=== PATIENT | female | born 1980 | race Caucasian/White ===

== ENCOUNTER 2018-07-23 07:30 | Inpatient (IN) | payer OTHER ==
[2018-07-23] VITALS (47 sets, daily range): BP systolic 105–144; BP diastolic 56–82
[~2018-07-23] VITALS: Ht 172.7 cm; Wt 108.0 kg
--- NOTE | 2018-07-23 07:30 | NUR ---
SEJAL SOMERS presented to unit via ambulation, accompanied by , for scheduled IOL. Pt. weighed, gowned, voided, and to bed.
--- NOTE | 2018-07-23 07:40 | NUR ---
EFHM and TOCO applied, VS taken. Pt. oriented to bed controls, call light, TV, heat, and A/C controls. admission paperwork completed.
--- NOTE | 2018-07-23 07:56 | NUR ---
called to check on pt status. update given. POC reviewed.
[2018-07-23] MEDS ORDERED: AMPICILLIN FOR IV USE 2,000 MG in NS (IVPB) 50 ML IV SCH (08:10)
[2018-07-23] MEDS ORDERED: OXYTOCIN/NORMAL SALINE 500 ML IV SCH ×2 (08:10→15:41)
[2018-07-23] MEDS ORDERED: LACTATED RINGERS 1,000 ML IV SCH ×2 (08:15→14:54)
[2018-07-23] MEDS ORDERED: NS (IVPB) 50 ML ONE (08:25)
[2018-07-23] MEDS ORDERED: AMPICILLIN 2,000 MG/20 ML (IV USE) ONE (08:25)
--- NOTE | 2018-07-23 08:40 | NUR ---
#20g IV to Lt.hand x1 attempt by this RN. site patent, secured with opsite. admission labs collected from site prior to LR infusing. pt tolerated well.
[2018-07-23 09:03] LABS: BASOPHILS % (AUTO) 0 % (0-10); EOSINOPHILS % (AUTO) 0 % (0-10); HEMATOCRIT 38 % (35-52); HEMOGLOBIN 12.6 G/DL (11.5-16.0); LYMPHOCYTES % (AUTO) 13 % (12-44); MEAN CORPUSCULAR HEMOGLOBIN 31 PG (25-34); MEAN CORPUSCULAR HGB CONC 33 G/DL (32-36); MEAN CORPUSCULAR VOLUME 94 FL (80-99); MONOCYTES # (AUTO) 0.6 X 10^3 (0.0-1.0); MONOCYTES % (AUTO) 8 % (0-12); NEUTROPHILS % (AUTO) 78 % (42-75); PLATELET COUNT 287 10^3/uL (130-400); RED BLOOD COUNT 4.04 10^6/uL (4.35-5.85); RED CELL DISTRIBUTION WIDTH 13.8 % (10.0-14.5); WHITE BLOOD COUNT 7.7 10^3/uL (4.3-11.0)
[2018-07-23] MEDS ORDERED: METF-399 PO (09:05)
[2018-07-23] MEDS ORDERED: DOCU-143 PO (09:07)
[2018-07-23] MEDS ORDERED: PREN-142 PO (09:07)
[2018-07-23] MEDS ORDERED: CYCL10TA9 PO (09:07)
--- NOTE | 2018-07-23 09:49 | NUR ---
called. will do SVE and will give update
[2018-07-23] MEDS ORDERED: FLU QUADRIvalent (5+ YOA) 2018-2019 (AFLURIA) 0.5 ML IM ONE (10:00)
[2018-07-23] MEDS ORDERED: AMPICILLIN FOR IV USE 1,000 MG in NS (IVPB) 50 ML IV SCH (12:15)
--- NOTE | 2018-07-23 13:23 | Labor Progress Note ---
Labor Progress Note Labor Progress Note Date Seen by Provider: Jul 23, 2018 Time Seen by Provider: 13:05 Subjective: Pt denies complaints. Objective: Cervical exam: 4.5/50/-2 Consistency: soft Position: mid Presentation: vertex heart tones: 140 beats per minute, moderate variability, no decels, difficult to trace Tocometer: 3 ctx/10 minutes Assessment/Plan: Pema Peck is a 37 /Para 3/2, Gestational Age (wks)39 here for IOL. AROM at this time with clear fluid and FSE placed for closer monitoring TOCO Continue pitocin Anticipate vaginal delivery. Dr. Zurita updated Vitals - Labs Vital Signs - I&O Vital Signs 07/23/18 07/23/18 11:30 12:30 Temp 97.4 Pulse 80 Resp 18 B/P (MAP) 120/66 (84) O2 Delivery Room Air Labs Laboratory Tests 07/23/18 08:40: White Blood Count 7.7, Red Blood Count 4.04L, Hemoglobin 12.6, Hematocrit 38, Mean Corpuscular Volume 94, Mean Corpuscular Hemoglobin 31, Mean Corpuscular Hemoglobin Concent 33, Red Cell Distribution Width 13.8, Platelet Count 287, Mean Platelet Volume 10.0, Neutrophils (%) (Auto) 78H, Lymphocytes (%) (Auto) 13 , Monocytes (%) (Auto) 8, Eosinophils (%) (Auto) 0, Basophils (%) (Auto) 0, Neutrophils # (Auto) 6.0, Lymphocytes # (Auto) 1.0, Monocytes # (Auto) 0.6, Eosinophils # (Auto) 0.0, Basophils # (Auto) 0.0 JAYNE JONES MD Jul 23, 2018 13:23
[2018-07-23] MEDS ORDERED: SUFENTA 0.6MCG/ML BUPIVA 0.125 100 ML ONE (13:36)
--- NOTE | 2018-07-23 13:48 | NUR ---
anesthesia notified of pt's request for epidural placement.
[2018-07-23] MEDS ORDERED: CATHETER FLUSH 10 ML SYR IV SCH ×2 (14:00→22:00)
[2018-07-23] MEDS ORDERED: BUPIVACAINE 0.25% 30 ML (SENSORCAINE) VIAL ONE (14:02)
[2018-07-23] MEDS ORDERED: fentaNYL INJECTION 100 MCG/2 ML AMP ONE (14:02)
--- NOTE | 2018-07-23 14:12 | NUR ---
CATY Shaw and MATTIE SRNA here for epidural placement. Procedure explained, consent reviewed and signed by anesthesia. Questions answered to patient's satisfaction. Time out taken to verify correct patient/procedure. Patient up to side of bed, assisted into sitting position. Betadine prep done x3 and sterile drape applied. 1415: Local done, see anesthesia record. 1421:Tests dose given, see anesthesia record for drug and dosage. Epidural catheter secured in place. Epidural placement complete. Assisted back into bed, monitors adjusted. Epidural dosed, see anesthesia record. 1430: Epidural of Sufenta/Bupvicaine @12cc/hr stated per pump. Patient tolerated procedure well.
[2018-07-23] MEDS ORDERED: EPIDURAL (SUFENTA 0.6MCG/ML BUPIVA 0.125%) 100 ML BAG EPI PRN (15:00)
[2018-07-23] MEDS ORDERED: METOCLOPRAMIDE INJ 10 MG/2 ML (REGLAN) IV PRN (15:00)
[2018-07-23] MEDS ORDERED: ONDANSETRON 4 MG/2 ML (SDV) Z0FRAN IV PRN (15:00)
[2018-07-23] MEDS ORDERED: NALOXONE 0.4 MG/ML 1 ML (NARCAN) VIAL IV PRN ×2 (15:00)
[2018-07-23] MEDS ORDERED: diphenhydrAMINE 50 MG/ML INJ (BENADRYL) IV PRN (15:00)
--- NOTE | 2018-07-23 15:36 | History & Physical-OB ---
OB - Chief Complaint & HPI Date/Time Date of Admission: Date of Admission: Jul 23, 2018 at 07:30 Time Seen by a Provider: 13:00 Chief Complaint/History OB-Reason for Admission/Chief: Induction of Labor Hx : 3 Hx Para: 2 Expected Date of Delivery: Jul 24, 2018 Gestational Age in Weeks: 39 Gestational Age in Days: 6 Indication for induction: other Admission Nurse Assessment Rev: Yes Allergies and Home Medications Allergies Coded Allergies: No Known Drug Allergies (Unverified , 07/23/18) Home Medications Cyclobenzaprine HCl 10 Mg Tablet, 10 MG PO HS, (Reported) Docusate Sodium 100 Mg Capsule, 100 MG PO DAILY, (Reported) Metformin HCl 1,000 Mg Tablet, 1,000 MG PO BID, (Reported) Vit No.124/Iron/FA 1 Each Tablet, 1 EACH PO DAILY, (Reported) Patient Home Medication List Home Medication List Reviewed: Yes OB - History Hx of Present Care: Yes Ultrasounds: Normal mid trimester US Obstetrical Complications: Gestational Diabetes Medical Complications: None Information Maternal Gestational Diabetes: Yes (controlled on metformin) Patient Past Medical History Healthy Social History/Family History Recent Infectious Disease Expo: No Alcohol Use: Denies Use Recreational Drug Use: No OB - Admission Exam Physical Exam Vitals: Vital Signs 07/23/18 07/23/18 11:30 13:30 Temp 97.4 Pulse 88 Resp 18 B/P (MAP) 130/79 (96) O2 Delivery Room Air HEENT: PERRLA Heart: Rhythm Normal Lungs: Clear Abdomen: Gravid Extremities: Normal Reflexes: Normal Cervical Dilatation: 10cm Effacement: 100% Station: +2 Membranes: Ruptured Amniotic Fluid: Clear Heart Rate: 130's Accelerations: Accelerations Present Decelerations: Variable Decelerations Short Term Variability: Present Fci Variability: Average (6-25) Contractions on Admission: < 5 Minutes Apart Intensity: Firm Labs Laboratory Tests Test 07/23/18 08:40 Range/Units White Blood Count 7.7 4.3-11.0 10^3/uL Red Blood Count 4.04 L 4.35-5.85 10^6/uL Hemoglobin 12.6 11.5-16.0 G/DL Hematocrit 38 35-52 % Mean Corpuscular Volume 94 80-99 FL Mean Corpuscular Hemoglobin 31 25-34 PG Mean Corpuscular Hemoglobin Concent 33 32-36 G/DL Red Cell Distribution Width 13.8 10.0-14.5 % Platelet Count 287 130-400 10^3/uL Mean Platelet Volume 10.0 7.4-10.4 FL Neutrophils (%) (Auto) 78 H 42-75 % Lymphocytes (%) (Auto) 13 12-44 % Monocytes (%) (Auto) 8 0-12 % Eosinophils (%) (Auto) 0 0-10 % Basophils (%) (Auto) 0 0-10 % Neutrophils # (Auto) 6.0 1.8-7.8 X 10^3 Lymphocytes # (Auto) 1.0 1.0-4.0 X 10^3 Monocytes # (Auto) 0.6 0.0-1.0 X 10^3 Eosinophils # (Auto) 0.0 0.0-0.3 10^3/uL Basophils # (Auto) 0.0 0.0-0.1 10^3/uL OB - Assessment/Plan/Diagnosis Assessment Assessment: active labor, induction of labor Admission Dx 39 6/7 wga with gestational diabetes Admission Status: Inpatient Order (span 2 midnights) Reason for Inpatient Admission: Vaginal delivery Plan Plan: Induction Induction Method: per Pitocin Protocol MARY PIERCE MD Jul 23, 2018 15:36
--- NOTE | 2018-07-23 15:41 | OB Labor & Delivery Record ---
Vag Delivery Note Vag Delivery Note Date of Delivery: 07/23/18 Preoperative Diagnosis: Pema Peck is a (37 /Para 3 / 2, Gestational Age (wks)39with [6 days] Postoperative Diagnosis: Same Surgeon: MARY PIERCE Inpatient Services Rn: [] Anesthesia: [epidural] Delivery Type: [] Findings: [] Viable [female] infant, apgars [8/9], weight [6 pounds 2 ounces] Lacerations: 2nd degree perineal Intact placenta with 3 vessel cord. Loose nuchal cord Estimated Blood Loss: [200] ml Complications: None Condition: Stable Description of Procedure: The patient is a []who presented [for induction of labor]. She was admitted and informed consent was obtained. Her labor course was remarkable for [ variable decelerations] She progressed to complete dilatation and began to push. She was then set up for delivery. The infant's head was delivered atraumatically in the [OP] position. The shoulders and remainder of the ' s body were then delivered without difficulty. Upon delivery, the head was held below the level of the perineum and the mouth and nares were bulb suctioned. The cord was doubly clamped and cut and the infant was placed on maternal abdomen. An intact placenta with 3-vessel cord was manually extracted and there was found to be minimal bleeding.~ Vigorous fundal massage was performed and the fundus was found to be firm. IV oxytocin was given. Examination of the vagina and perineum revealed a [2nd degree perineal] laceration repaired in the usual fashion with 3-0 vicryl suture. Following the repair, sponge, instrument and needle counts were correct. Mom and baby were both in stable condition in the labor suite. Vitals - Labs Vital Signs - I&O Vital Signs Date Time Temp Pulse Resp B/P (MAP) Pulse Ox O2 Delivery O2 Flow Rate FiO2 07/23/18 13:30 88 18 130/79 (96) Room Air 07/23/18 13:15 90 18 129/72 (91) Room Air 07/23/18 13:00 88 18 128/71 (90) Room Air 07/23/18 12:45 89 18 125/80 (95) Room Air 07/23/18 12:30 80 18 120/66 (84) Room Air 07/23/18 12:15 82 18 115/62 (79) Room Air 07/23/18 12:00 85 18 115/67 (83) Room Air 07/23/18 11:45 81 18 114/66 (82) Room Air 07/23/18 11:30 97.4 84 18 117/66 (83) Room Air 07/23/18 11:15 90 18 125/74 (91) Room Air 07/23/18 11:00 87 18 126/72 (90) Room Air 07/23/18 10:45 83 18 122/73 (89) Room Air 07/23/18 10:30 88 18 122/76 (91) Room Air 07/23/18 10:15 95 18 144/72 (96) Room Air 07/23/18 10:00 81 18 110/76 (87) Room Air 07/23/18 09:45 96 18 119/65 (83) Room Air 07/23/18 09:30 88 18 126/69 (88) Room Air 07/23/18 09:15 84 18 122/65 (84) Room Air 07/23/18 09:00 96.6 96 18 118/59 (78) Room Air 07/23/18 08:45 91 18 120/63 (82) Room Air 07/23/18 07:40 109 18 129/81 (97) Room Air Labs Laboratory Tests 07/23/18 08:40: White Blood Count 7.7, Red Blood Count 4.04L, Hemoglobin 12.6, Hematocrit 38, Mean Corpuscular Volume 94, Mean Corpuscular Hemoglobin 31, Mean Corpuscular Hemoglobin Concent 33, Red Cell Distribution Width 13.8, Platelet Count 287, Mean Platelet Volume 10.0, Neutrophils (%) (Auto) 78H, Lymphocytes (%) (Auto) 13 , Monocytes (%) (Auto) 8, Eosinophils (%) (Auto) 0, Basophils (%) (Auto) 0, Neutrophils # (Auto) 6.0, Lymphocytes # (Auto) 1.0, Monocytes # (Auto) 0.6, Eosinophils # (Auto) 0.0, Basophils # (Auto) 0.0 MARY PIERCE MD Jul 23, 2018 15:41
[2018-07-23] MEDS ORDERED: TETANUS,DIPTH,PERTUSS P/F (BOOSTRIX) 0.5 ML VIAL IM ONE (15:45)
[2018-07-23] MEDS ORDERED: BENZOCAINE/MENTHOL (DERMOPLAST) 56 ML CAN TP PRN (15:45)
[2018-07-23] MEDS ORDERED: MEASLES,MUMPS,RUBELLA 1 EA INJ SQ ONE (15:45)
[2018-07-23] MEDS ORDERED: WITCH HAZEL(TUCKS) 40 EA JAR TOP PRN (15:45)
[2018-07-23] MEDS: IBUPROFEN 600 MG (MOTRIN) TAB PO SCH ×2 (18:00→23:57)
--- NOTE | 2018-07-23 18:00 | NUR ---
FFu/1. lt rubra noted, no clots expressed. gamaliel-care offered. Dermaplast applied to site. v-pad and panties in place. pt transferred to room 312 via w/c with family @ side. pt reports no c/o's @ time. scheduled Motrin given. see eMar for further.
--- NOTE | 2018-07-23 19:06 | NUR ---
report given to next shift.
--- NOTE | 2018-07-23 21:00 | NUR ---
PT standby assist to bathroom, first void since delivery, no distress noted, jerman urine noted in toilet mixed with blood, pericare independently, ambulated independently to bed, vss, see int. Denies needs, will cont to monitor.
[2018-07-23] MEDS: DOCUSATE SODIUM 100 MG (COLACE) CAP PO SCH (23:57)
[2018-07-24 05:41] LABS: BASOPHILS % (AUTO) 0 % (0-10); EOSINOPHILS # (AUTO) 0.1 10^3/uL (0.0-0.3); EOSINOPHILS % (AUTO) 1 % (0-10); HEMATOCRIT 34 % (35-52); HEMOGLOBIN 11.3 G/DL (11.5-16.0); LYMPHOCYTES # (AUTO) 1.6 X 10^3 (1.0-4.0); LYMPHOCYTES % (AUTO) 21 % (12-44); MEAN CORPUSCULAR HEMOGLOBIN 32 PG (25-34); MEAN CORPUSCULAR HGB CONC 34 G/DL (32-36); MEAN CORPUSCULAR VOLUME 95 FL (80-99); MEAN PLATELET VOLUME 9.5 FL (7.4-10.4); MONOCYTES # (AUTO) 0.8 X 10^3 (0.0-1.0); MONOCYTES % (AUTO) 10 % (0-12); NEUTROPHILS # (AUTO) 5.2 X 10^3 (1.8-7.8); NEUTROPHILS % (AUTO) 68 % (42-75); PLATELET COUNT 282 10^3/uL (130-400); RED BLOOD COUNT 3.56 10^6/uL (4.35-5.85); RED CELL DISTRIBUTION WIDTH 13.9 % (10.0-14.5); WHITE BLOOD COUNT 7.6 10^3/uL (4.3-11.0)
[2018-07-24] MEDS ORDERED: PRENATAL VITAMIN 1 EA TAB PO SCH (07:00)
[2018-07-24] MEDS: DOCUSATE SODIUM 100 MG (COLACE) CAP PO SCH (08:51)
[2018-07-24] MEDS: IBUPROFEN 600 MG (MOTRIN) TAB PO SCH ×2 (08:52→14:10)
--- NOTE | 2018-07-24 09:55 | Anesthesia-Regional Post-Op ---
Regional Patient Condition Mental Status: Alert, Oriented x3 Circulation: Same as Pre-Op Headache: Absent Sensation: Full Recovery Motor Block: Absent Post Op Complications Complications None Follow Up Care/Instructions Patient Instructions None needed. Anesthesia/Patient Condition Patient is doing well, no complaints, stable vital signs, no apparent adverse anesthesia problems. No complications reported per nursing. [place] [facility] [place] MARIO TRAN CRNA Jul 24, 2018 09:55
--- NOTE | 2018-07-24 11:27 | Progress Note (SOAP) ---
Subjective Subjective/Events-last exam PPD#1 Afebrile, no acute events. Bleeding decreasing. Denies dizziness, shortness of breath, leg pain. Review of Systems Date Seen by Provider: Jul 24, 2018 Time Seen by Provider: 09:03 Objective Exam Last Set of Vital Signs Vital Signs Date Time Temp Pulse Resp B/P (MAP) Pulse Ox O2 Delivery O2 Flow Rate FiO2 07/23/18 23:57 97.9 74 18 105/61 (76) 95 Room Air Capillary Refill : I&O Intake and Output 07/24/18 00:00 Intake Total 600 ml Balance 600 ml Intake IV Total 600 ml Daily Weight Change No General: Alert, No Acute Distress Lungs: Clear to Auscultation, Normal Air Movement Heart: Regular Rate, No Murmurs Neuro: Normal Speech Psych/Mental Status: Mental Status NL Results/Procedures Lab Laboratory Tests 07/24/18 05:30: White Blood Count 7.6, Red Blood Count 3.56L, Hemoglobin 11.3L, Hematocrit 34L, Mean Corpuscular Volume 95, Mean Corpuscular Hemoglobin 32, Mean Corpuscular Hemoglobin Concent 34, Red Cell Distribution Width 13.9, Platelet Count 282, Mean Platelet Volume 9.5, Neutrophils (%) (Auto) 68, Lymphocytes (%) (Auto) 21, Monocytes (%) (Auto) 10, Eosinophils (%) (Auto) 1, Basophils (%) (Auto) 0, Neutrophils # (Auto) 5.2, Lymphocytes # (Auto) 1.6, Monocytes # (Auto) 0.8, Eosinophils # (Auto) 0.1, Basophils # (Auto) 0.0 Assessment/Plan Assessment/Plan (1) Spontaneous vaginal delivery Status: Acute Assessment & Plan: with second degree perineal laceration repair, routine care (2) anemia Status: Acute Assessment & Plan: Mild, asymptomatic, continue vitamin with iron. (3) Gestational diabetes Status: Resolved Assessment & Plan: Will need diabetes testing . Qualifiers: Clinical Quality Measures DVT/VTE Risk/Contraindication: Risk Factor Score Per Nursin RFS Level Per Nursing on Admit: 1=Low/No VTE PPX JAYNE JONES MD Jul 24, 2018 11:27
[2018-07-24 13:25] VITALS: BP 112/78
[2018-07-24] MEDS ORDERED: IBUP-844 PO (17:13)
--- NOTE | 2018-07-24 17:14 | Discharge Summary ---
ANAIS GE MED STUDENT 07/24/18 1714: Diagnosis/Chief Complaint Date of Admission Jul 23, 2018 at 07:30 Date of Discharge Admission Diagnosis Admission Diagnosis induction of labor, with gestational diabetes mellitus Discharge Diagnosis s/p Problems/Diagnosis: (1) Spontaneous vaginal delivery Assessment & Plan: with second degree perineal laceration repair, routine care -safe to discharge; patient is ambulating, urinating, tolerating a diet without difficulty Status: Acute (2) anemia Assessment & Plan: Mild, asymptomatic, continue vitamin with iron. asymptomatic mild anemia H/H 12.6/38 -> 11.3/34 PPD#1 Status: Acute (3) Gestational diabetes Assessment & Plan: Will need diabetes testing . Qualifiers: Status: Resolved Resolution Date/Time: 07/23/18 @ 11:26 Discharge Summary-Simple/Stand Discharge Physical Examination Allergies: Coded Allergies: No Known Drug Allergies (Unverified , 07/23/18) Vitals & I&Os Vital Sign - Last 12Hours Date Time Temp Pulse Resp B/P (MAP) Pulse Ox O2 Delivery O2 Flow Rate FiO2 07/24/18 13:25 97.9 84 18 112/78 (89) Room Air 07/23/18 23:57 95 Intake and Output 07/24/18 00:00 Intake Total 550 ml Balance 550 ml General Appearance: Alert, Oriented X3, Cooperative HEENT: Atraumatic Respiratory: Clear to Auscultation, Normal Air Movement Cardiovascular: Regular Rate, Normal S1, Normal S2 Abdominal: Normal Bowel Sounds, Other (fundus firm at the umbillicus, nontender ) Neuro: Normal Speech Psych/Mental Status: Mental Status NL, Mood NL Hospital Course See final discharge diagnosis. Labs Laboratory Tests Test 07/23/18 08:40 07/24/18 05:30 Range/Units White Blood Count 7.7 7.6 4.3-11.0 10^3/uL Red Blood Count 4.04 L 3.56 L 4.35-5.85 10^6/uL Hemoglobin 12.6 11.3 L 11.5-16.0 G/DL Hematocrit 38 34 L 35-52 % Mean Corpuscular Volume 94 95 80-99 FL Mean Corpuscular Hemoglobin 31 32 25-34 PG Mean Corpuscular Hemoglobin Concent 33 34 32-36 G/DL Red Cell Distribution Width 13.8 13.9 10.0-14.5 % Platelet Count 287 282 130-400 10^3/uL Mean Platelet Volume 10.0 9.5 7.4-10.4 FL Neutrophils (%) (Auto) 78 H 68 42-75 % Lymphocytes (%) (Auto) 13 21 12-44 % Monocytes (%) (Auto) 8 10 0-12 % Eosinophils (%) (Auto) 0 1 0-10 % Basophils (%) (Auto) 0 0 0-10 % Neutrophils # (Auto) 6.0 5.2 1.8-7.8 X 10^3 Lymphocytes # (Auto) 1.0 1.6 1.0-4.0 X 10^3 Monocytes # (Auto) 0.6 0.8 0.0-1.0 X 10^3 Eosinophils # (Auto) 0.0 0.1 0.0-0.3 10^3/uL Basophils # (Auto) 0.0 0.0 0.0-0.1 10^3/uL Discharge Condition at discharge stable Instructions to patient/family Please see electronic discharge instructions given to patient. Discharge Medications Reviewed and agree with Discharge Medication list on patient's Discharge Instruction sheet Clinical Quality Measures DVT/VTE Risk/Contraindication: Risk Factor Score Per Nursin RFS Level Per Nursing on Admit: 1=Low/No VTE PPX Copy Copies To 1: MARY PIERCE MD, BETHANY N MD 07/25/18 1159: Discharge Summary-Simple/Stand Discharge Physical Examination Allergies: Coded Allergies: No Known Drug Allergies (Unverified , 07/23/18) Supervisory-Addendum Brief Supervisory Addendum Pt seen by me along with MSMaris Ge, agree with documentation except as noted. I did not repeat abdominal exam today. ANAIS GE MED STUDENT Jul 24, 2018 17:14 JAYNE JONES MD Jul 25, 2018 11:59
--- NOTE | 2018-07-24 17:15 | Discharge Instructions ---
Discharge Inst-Women's Serv Depart Medications New, Converted or Re-Newed RX: RX on Chart New Medications: Ibuprofen (Ibu) 600 Mg Tablet 600 MG PO Q6H PRN for PAIN-MODERATE TO SEVERE, #60 TAB 0 Refills Continued Medications: Cyclobenzaprine HCl (Cyclobenzaprine HCl) 10 Mg Tablet 10 MG PO HS, TAB Docusate Sodium (Colace) 100 Mg Capsule 100 MG PO DAILY, CAP Vit No.124/Iron/FA ( Vitamin Tablet) 1 Each Tablet 1 EACH PO DAILY, TAB Discontinued Medications: Metformin HCl (Metformin HCl) 1,000 Mg Tablet 1000 MG PO BID, TAB Follow Up/Instructions Goal/Follow Up: Follow up with Dr. Pierce in 6 weeks for visit. Activity Activity: Activity as Tolerated (avoid strenuous activity x 6 weeks) Nothing Inside Vagina: No Douching, No [place], No Tampons Diet Discharge Diet: Regular Diet Symptoms to Report to : Swelling Increased, Constipation(Persistant), Pain/ Pressure in Chest, Vaginal Bleeding Increase, Vaginal Discharge Foul, Nausea/ Vomiting, Shortness of Breath For Any Problems or Questions: Contact Your Physician Copies To 1: MARY PIERCE MD,JAYNE Lechuga MD Jul 24, 2018 17:15
[2018-07-24 17:33] VITALS: BP 112/78
--- NOTE | 2018-07-24 18:15 | NUR ---
Home instructions given - verbal and written. Pt and verbalize understanding.
--- NOTE | 2018-07-24 18:40 | NUR ---
Pt discharged as inpatient. Will be boarder mom - explained to mom procedure. Infant to be kept overnight.
== END 2018-07-24 18:40 | disposition home or self-care (01) | DRG 807 ==
LOC: LDRP 07:30
PROVIDERS: ADMIT Family Medicine; ATTEND Family Medicine
PROC: 10E0XZZ Delivery of Products of Conception, External Approach (ICD-10-PCS; principal; 2018-07-23)
PROC: 0KQM0ZZ Repair Perineum Muscle, Open Approach (ICD-10-PCS; 2018-07-23)
PROC: 3E033VJ Introduction of Other Hormone into Peripheral Vein, Percutaneous Approach (ICD-10-PCS; 2018-07-23)
DX: O24.425 Gestational diabetes mellitus in childbirth, controlled by oral hypoglycemic drugs (principal); O70.1 Second degree perineal laceration during delivery; O76 Abnormality in fetal heart rate and rhythm complicating labor and delivery; O99.03 Anemia complicating the puerperium; D64.9 Anemia, unspecified; Z3A.39 39 weeks gestation of pregnancy; Z37.0 Single live birth; Z79.84 Long term (current) use of oral hypoglycemic drugs
CPT/HCPCS: 36415; 85025; 86850; 86900; 86901

== ENCOUNTER → 2022-04-03 | Outpatient (CLI) | payer OTHER ==
[~2022-04-03] MED LIST: CYCL10TA25 PO; DOCU-143 PO; IBUP-844 PO; METF-399 PO; PREN-142 PO
[2022-04-03 10:37] LABS: BASOPHILS % (AUTO) 1 % (0-10); EOSINOPHILS % (AUTO) 1 % (0-10); HEMATOCRIT 41 % (35-52); HEMOGLOBIN 13.5 g/dL (11.5-16.0); LYMPHOCYTES # (AUTO) 1.4 10^3/uL (1.0-4.0); LYMPHOCYTES % (AUTO) 27 % (12-44); MEAN CORPUSCULAR HEMOGLOBIN 29 pg (25-34); MEAN CORPUSCULAR HGB CONC 33 g/dL (32-36); MEAN CORPUSCULAR VOLUME 90 fL (80-99); MEAN PLATELET VOLUME 9.6 fL (9.0-12.2); MONOCYTES # (AUTO) 0.5 10^3/uL (0.0-1.0); MONOCYTES % (AUTO) 10 % (0-12); NEUTROPHILS # (AUTO) 3.3 10^3/uL (1.8-7.8); NEUTROPHILS % (AUTO) 62 % (42-75); PLATELET COUNT 323 10^3/uL (130-400); WHITE BLOOD COUNT 5.3 10^3/uL (4.3-11.0)
[2022-04-03 11:36] LABS: POTASSIUM 3.2 MMOL/L (3.6-5.0)
[2022-04-03 11:37] LABS: BILIRUBIN,TOTAL 0.3 MG/DL (0.1-1.0); CALCIUM 9.5 MG/DL (8.5-10.1); CREATININE SERUM 0.8 MG/DL (0.60-1.30); TOTAL PROTEIN 7.5 GM/DL (6.4-8.2)
== END ==
LOC: LAB FS 10:18
PROVIDERS: ATTEND Registered Nurse Emergency
DX: R10.9 Unspecified abdominal pain (principal); R19.7 Diarrhea, unspecified
CPT/HCPCS: 36415; 80053; 85025; 87015; 87045; 87046; 87077; 87324; 87328; 87329; 87449; 87899; 89055

== ENCOUNTER → 2022-04-10 | Outpatient (CLI) | payer OTHER ==
[2022-04-10 11:57] LABS: CALCIUM 9.4 MG/DL (8.5-10.1); CREATININE SERUM 0.83 MG/DL (0.60-1.30); POTASSIUM 4.1 MMOL/L (3.6-5.0)
== END ==
LOC: LAB FS 11:11
PROVIDERS: ATTEND Registered Nurse Emergency
DX: E87.6 Hypokalemia (principal)
CPT/HCPCS: 36415; 80048